=== PATIENT | male | born 1965 | race Asian ===

== ENCOUNTER 2025-07-01 14:26 | Emergency (ER) | payer OTHER, SELFPAY ==
[2025-07-01 14:27] VITALS: BP 149/49; PULSE 94; RESP 18; TEMP 36.6; O2SAT 97; BMI 26.4
--- NOTE | 2025-07-01 14:40 | EDS_ITS ---
HPI History of Present Illness Chief Complaint: Lower Extremity Injury Detail of Chief Complaint: Foot pain Informant: patient Narrative Narrative: Patient presents to the emergency department with complaint of left foot pain that started 2 weeks ago. He denies injury. He is on his feet a lot at work. Denies fevers or chills or sweats. He is a diabetic. [facility] Medical History (Updated 07/01/25 @ 15:[address] Nolan Ahmadi, DO) Hyperlipidemia Diabetes mellitus Home Medications Medication Instructions Recorded Last Taken Type aspirin 81 mg tablet,delayed 81 mg PO DAILY 07/01/25 U nknown History release (Adult Low Dose Aspirin) hydrocodone-acetaminophen 5-325mg 1 tab PO Q4H PRN PRN Pain 2 days 07/01/25 Unknown Rx 5mg-325mg #10 TABLETS insulin aspart U-100 100 unit/mL 15 unit subcut TID Unknown History subcutaneous solution (Novolog U-100 Insulin aspart) pioglitazone 45 mg tablet (Actos) 45 mg PO DAILY 07/01 Unknown History simvastatin 20 mg tablet 20 mg PO DAILY 07/01/25 Unkn own History Allergy/AdvReac Type Severity Reaction Status Date / Time No Known Allergies Allergy Verified 07/01/25 14:29 ROS ROS ED Review of Systems ROS Unobtainable: other Constitutional Constitutional ED: Reports lethargy; Denies chills, fever(s), sweats or weight loss Eyes Eyes: Denies blurry vision, change in vision or diplopia ENT ENT ED: Denies rhinorrhea or sore throat Cardiovascular Cardiovascular: Denies chest pain, orthopnea or racing heartbeat Respiratory/Chest Respiratory/Chest: Denies cough, dyspnea, dyspnea on exertion, orthopnea or sputum Gastrointestinal Gastrointestinal: Denies abdominal pain, diarrhea, nausea or vomiting Genitourinary Genitourinary ED: Denies dysuria, hematuria or urinary frequency Musculoskeletal Musculoskeletal: Reports other Details: Left heel pain ; Denies arthralgias, back pain, myalgias or neck pain Integumentary Denies abscess, Abrasions or rash Neurologic Neurologic: Denies headache(s) or weakness Psychiatric Psychiatric: Denies anxiety, depression or suicidal thoughts Endocrine Endocrinology: Denies polydipsia, polyphagia or polyuria Hematologic/Lymphatic Hematologic/Lymphatic: Denies easy bleeding, easy bruising or lymphadenopathy Allergic/Immunologic Allergic/Immunologic ED: Denies mouth swelling, tongue swelling or urticaria EXAM Physical Exam Const Vital Signs: 07/01/25 14:27 Temperature 97.8 F Temperature Source Oral Pulse Rate 94 Respiratory Rate 18 Blood Pressure 149/49 H Blood Pressure Mean 82 Pulse Ox 97 Oxygen Delivery Method Room Air Positive well nourished and well developed General Appearance ED: well developed and NAD HEENT Reports TM's clear and moist mucous membranes normocephalic and atraumatic; Negative for trauma or tenderness Tympanic Membrane ED: Yes TM's clear Eyes PERRL and EOMs intact bilaterally General Eye ED: Negative for pale conjunctiva or scleral icterus Neck no lymphadenopathy, supple and no JVD General: Negative for tenderness Chest Wall inspection of chest normal and palpation of chest normal Chest: Negative for tenderness Resp normal respiratory effort and clear to auscultation bilaterally Effort and Inspection: Negative for respiratory distress or pain with movement Auscultation: Negative for rhonchi, wheezes or diminished lung sounds Cardio regular rate, regular rhythm, S1 normal heart sound, S2 normal heart sound and no murmurs Peripheral Pulses: pulses 2+ throughout GI normal to inspection, nondistended, normoactive bowel sounds, soft to palpation, non-tender, non-distended and no masses Back/Spine no CVA tenderness and no thoracic nor lumbar tenderness Extremity Extremity Narrative: Left foot-patient has tenderness to palpation over the plantar aspect of the heel near her midfoot. There is no erythema or warmth. No masses palpated. The plantar fascia does not seem tight. He is neurovascularly intact distally. General Extremety ED: Negative for edema General Extremity: Negative for edema Neuro oriented x3, CN's II-XII intact bilaterally, no sensory deficits noted and gait normal Sensorium / Orientation: awake, alert, oriented to person, oriented to place and oriented to time Motor Exam: strength 5/5 throughout and strength abnormal Psych mental status grossly normal Skin no rashes or lesions noted and no wounds MDM MDM MDM Narrative Medical decision making narrative: Patient presents with pain to his left foot without trauma. He is diabetic. Pain over the heel plantar aspect. No signs of infection. X-rays of the left foot obtained showed no fractures or foreign bodies or acute process. Etiology of patient's pain unclear. Recommended he wear a soft insert. Will refer to podiatry for follow-up. Will write a prescription for a few [place] for pain Radiography Diagnostic Testing: Three-view x-rays of left foot obtained interpreted by myself as no evidence of fracture or dislocation, no foreign body. Discharge Plan Triage Chief Complaint: Lower Extremity Injury ED Provider: Nolan Ahmadi Dx/Rx/DC Orders Clinical Impression: Acute foot pain Instructions: ED Pain, Acute, Uncertain Cause Prescriptions: New hydrocodone-acetaminophen 5-325 mg tablet 1 tab PO Q4H PRN PRN (Reason: Pain) 2 Days Qty: 10 0RF No Action insulin aspart U-100 [Novolog U-100 Insulin aspart] 100 unit/mL solution 15 unit subcut TID simvastatin 20 mg tablet 20 mg PO DAILY pioglitazone [Actos] 45 mg tablet 45 mg PO DAILY aspirin [Adult Low Dose Aspirin] 81 mg tablet,delayed release (DR/EC) 81 mg PO DAILY Primary Care Provider: [facility],Dolly Rendon Referrals: Vu Reardon DPM [Med Staff - Active Staff, Podiatry] - 3-5 Days [facility],Dolly Rendon [Primary Care Provider, Medical] Print Language: [place] Disposition Disposition: Home, Self Care
--- NOTE | 2025-07-01 14:45 | RAD_ITS ---
PROCEDURE: FOOT MIN 3 VIEWS 07/01/2025 REASON FOR EXAM: Left heel pain TECHNIQUE: Procedure Code: RADFO Modality: DX Procedure: FOOT MIN 3 VIEWS Multiple radiographs of the left foot provided in three views. COMPARISON: None available. FINDINGS: No acute fracture or dislocation in the left foot. No aggressive osseous lesion. No joint effusion. Dorsal calcaneal enthesopathy. No significant soft tissue swelling. Peripheral vascular calcification. RAD/Foot min 3 Views IMPRESSION: 1. No acute fracture or dislocation in the left foot. 2. Dorsal calcaneal enthesopathy. Reading Location: [id number]
[2025-07-01 15:21] VITALS: BP 136/58; PULSE 67; RESP 17; O2SAT 99
[2025-07-01 15:22] VITALS: BP 136/58; PULSE 67; RESP 17; TEMP 36.6; O2SAT 99
== END 2025-07-01 15:23 | disposition home or self-care (01) ==
LOC: ED 15:20
PROVIDERS: Emergency Provider Emergency Medicine; Visit Provider Emergency Medicine
DX: M79.672 Pain in left foot (principal); E11.9 Type 2 diabetes mellitus without complications; Z79.4 Long term (current) use of insulin; E78.5 Hyperlipidemia, unspecified
CPT/HCPCS: 73630; 99282